=== PATIENT | male | born 1945 | race Caucasian/White ===

== ENCOUNTER 2017-03-26 10:14 | Emergency (ER) | payer MEDICARE ==
[2010-09-14 13:00] VITALS: BMI 33.4
== END 2017-03-26 11:40 | disposition home or self-care (01) ==
LOC: D.ER 10:14
DX: S39.012A Strain of muscle, fascia and tendon of lower back, initial encounter (principal); V43.32XA Unspecified car occupant injured in collision with other type car in nontraffic accident, initial encounter; Y93.89 Activity, other specified; Y92.410 Unspecified street and highway as the place of occurrence of the external cause; S01.01XA Laceration without foreign body of scalp, initial encounter

== ENCOUNTER → 2019-12-15 10:17 | Outpatient (CLI) | payer MEDICARE ==
[2010-09-14 13:00] VITALS: BMI 33.4
== END | disposition home or self-care (01) ==
LOC: D.HCCECHO 10:17
PROVIDERS: ATTEND Internal Medicine Cardiovascular Disease
DX: I25.10 Atherosclerotic heart disease of native coronary artery without angina pectoris (principal)

== ENCOUNTER 2020-01-03 07:51 | Inpatient (IN) | payer MEDICARE ==
[~2020-01-03] VITALS: Ht 188 cm; Wt 134.1 kg
--- NOTE | ~2020-01-03 | HEMODYNAMI ---
PATIENT:MARIO JUAN MEDICAL RECORD: [id number] : 49 LOCATION:D.CAT ADMISSION DATE: 01/03/20 Generatedon:01/03/202010:16 Patient name: MARIO JUAN Patient #: [id number] SSN: D OB: 1945 Date of study: 01/03/2020 Page: Of Hemodynamic Procedure Report Patient Data Patient Demographics Procedure consent was obtained First Name: MARIO Gender: Male Last Name: YESSICA : 1945 Middle Initial: D Age: 74 year(s) Patient #: [id number] Race: Unknown Additional ID: [id number] Contact details [address]: [address] [place] [address] State: [place] City: [place] Zip code: [address] Past Medical History History of disease Date Diagnosis Comments CAD Allergies: No known allergies Admission Admission Data Admission Date: 01/03/2020 Admission Time: 7:51 Height (in.): 74.02 BSA: 2.53 (m2) Height (cm.): 188 BMI: 36.78 (kg/m2) Weight (lbs.): 286.6 Weight (kg.): 130 Medications upon Admission Medications Dosage Times Administered Last Remarks per Delivery Day Date and Time ARMANDO Inhibitor (any) Beta Anne (any) Current Diagnosis Diagnosis Description Unstable angina Lab Results Lab Result Date: 01/03/2020 Lab Result Time: 0:00 Biochemistry Name Units Result Min Max Creatinine mg/dl 1.2 --(---*)-- 0.6 1.3 eGFR ml/min 63 *-(----)-- 90 120 NONAFRICAN CBC Name Units Result Min Max Hematocrit % 39.9 -*(----)-- 42 54 Hemoglobin g/dl 13 -*(----)-- 13.5 17.5 Procedure Procedure Types Cath Procedure Diagnostic Procedure LHC LHC w/Coronaries Procedure Description Procedure Date Procedure Date: 01/03/2020 Procedure Start Time: 9:45 Procedure End Time: 10:13 Procedure Staff Name Function Maxime Conley MD Performing Physician Vince Redd RT Monitor Mica Tanner RT Scrub Trace Iraheta RN Nurse Procedure Data Cath Procedure Fluoroscopy Diagnostic fluoroscopy Total fluoroscopy Time: 4.1 time: 4.1 min min Diagnostic fluoroscopy Total fluoroscopy dose: dose: 1258 mGy 1258 mGy Contrast Material Contrast Material Type Amount (ml) Isovue 300 85 Entry Location Entry Primary Successful Side Size Upsize Upsize Entry Closure Succes sful Closure Location (Fr) 1 (Fr) 2 (Fr) Remarks Device Remarks Femoral Right 5 Fr Exoseal artery Estimated blood loss: 10 ml Diagnostic catheters Device Type Used For End Catheter Placement MULTIPACK JL 4.0 5Fr Procedure catheter DIAGNOSTIC JL 5 5Fr Procedure catheter ([id number]) MULTIPACK 3DRC 5Fr Procedure catheter MULTIPACK Pigtail 5 Fr Procedure catheter Procedure Medications Medication Administration Route Dosage Oxygen etCO2 Nasal cannula 2 l/min Lidocaine 2% added to field 20 Heparin Flush Bag added to field 2 bags (1000units/500ml NS) 0.9% NaCl I.V. 100 ml/hr Versed I.V. 1 mg Fentanyl I.V. 50 mcg Versed I.V. 1 mg Fentanyl I.V. 50 mcg Versed I.V. 1 mg Hemodynamics Rest BSA: 2.53 (m2) HGB: 13 (g/dl) O2 Consumption: Estimated: 277.66 (ml/min) O2 Cons umption indexed: Estimated:109.75 (ml/min/m) Heart Rate: 55 (bpm) Pressure Samples Time Site Value (mmHg) Purpose Heart Use Rate(bpm) 10:00 LV 96/7,17 Snapshot 64 10:01 AO 103/57(76) Pullback 69 10:01 LV 104/1,13 Pullback 69 Gradients Valve Time Site 1 Site 2 Mean SEP/DFP Peak To Heart Use (mmHg) (sec/min) Peak Rate (mmHg) (bpm) Aortic 10:01 LV AO 9 14 1 69 104/1,13 103/57(76) Calculations Valve P-P Mean Valve Index Valve Source Name Gradient Area Flow (cm2) Aortic 1 9 1 9 Snapshots Pre Cath Intra NCS Post Cath Vital Signs Time Heart Resp SPO2 etCO2 NIBP Rhythm Pain Sedation Rate (ipm) (%) (mmHg) (mmHg) Status Level (bpm) 9:35:36 50 18 98 30 126/63(85) NSR 0 (11) 10(A) , No pain 9:39:56 53 21 99 1.5 119/67(83) NSR 0 (11) 10(A) , No pain 9:44:12 52 20 98 21.7 111/65(83) NSR 0 (11) 10(A) , No pain 9:48:28 52 16 98 27 102/58(65) NSR 0 (11) 9(A) , No pain 9:52:46 50 17 98 26.2 107/59(86) NSR 0 (11) 9(A) , No pain 9:57:02 67 17 98 24 108/63(78) NSR 0 (11) 9(A) , No pain 10:01:18 66 17 98 19.5 103/60(80) NSR 0 (11) 10(A) , No pain 10:05:34 65 27 98 30 110/67(84) NSR 0 (11) 10(A) , No pain 10:09:52 50 17 98 22.5 106/60(76) NSR 0 (11) 10(A) , No pain 10:14:13 47 14 98 13.5 110/58(79) NSR 0 (11) 10(A) , No pain Medications Time Medication Route Dose Verified Delivered Reason Notes Effe ctiveness by by 9:36:40 Oxygen etCO2 2 Maxime Buffie used for Nasal l/min Jarvis Iraheta RN procedure cannula 9:36:47 Lidocaine 2% added 20ml Maxime Buffie for local to vial Jarvsi Iraheta RN anesthetic field 9:36:53 Heparin Flush added 2 Maxime Buffie used for Bag to bags Jarvis Iraheta RN procedure (1000units/500ml field NS) 9:37:02 0.9% NaCl I.V. 100 Maxime Buffie Per ml/hr Jarvis Iraheta RN physician 9:44:00 Versed I.V. 1 mg Maxime Buffie for Jarvis Iraheta RN sedation 9:44:06 Fentanyl I.V. 50 Maxime Buffie for mcg Jarvis Iraheta RN sedation 9:49:20 Versed I.V. 1 mg Maxime Buffie for Jarvis Iraheta RN sedation 9:49:24 Fentanyl I.V. 50 Maxime Buffie for mcg Conley MD Iraheta RN sedation 9:54:02 Versed I.V. 1 mg Maxime Woodward for Jarvis Iraheta RN sedation Procedure Log Time Note 9:16:56 Informed consent obtained and on chart 9:19:14 ACC Patient presents with Unstable Angina CCS Anginal Class 2--Slight limitation of ordinary activity. 9:19:17 Procedure Status Elective Heart Cath (OP). 9:19:21 Vince Redd RT(R) (CV) sent for patient. Start room use. 9:19:23 Time tracking: Regular hours (M-F 7:00 - 5:00) 9:19:27 Plan of Care:Hemodynamics will remain stable., Cardiac rhythm will remain stable., Comfort level will be maintained., Respiratory function will remain adequate., Patient/ family verbilizes understanding of procedure., Procedure tolerated without complication., Recovers from procedure without complications.. 9:19:31 Full Disclosure recording started 9:19:35 H&P Date Dictated: 01/03/2020 Within 30 days and on chart.. 9:19:52 Patient allergic to No known allergies 9:19:58 Is the patient allergic to Iodine/contrast media? No. 9:20:00 Was the patient premedicated? N/A 9:20:21 ACCPatient has been prescribed/administered the following anti-anginal medication within the last 2 weeks: Beta Anne, Calcium Channel Blockers, ARMANDO-Inhibitor 9:20:26 Patient NPO since Midnight. 9:20:32 Is patient on blood thinner?No 9:20:34 ACC The patient was administered the following blood thiners within the last 24 hours: None 9:20:53 Patient diabetic? No. 9:20:55 If diabetic: On Metformin? N/A 9:21:50 Patient Height : 74.02 inches 9:21:53 Patient Weight : 286.6 lbs 9:21:57 Current Diagnosis : Unstable angina 9:22:30 Lab Result : Hemoglobin 13 g/dl 9:22:30 Lab Result : eGFR NONAFRICAN 63 ml/min 9:22:30 Lab Result : Creatinine 1.2 mg/dl 9:22:30 Lab Result : Hematocrit 39.9 % 9:22:35 Diagnostic Cath Status : Elective 9:25:02 Lab results completed and on chart. 9:25:24 Stress Test: yes; abnormal FIXED INFERIOR WALL 9:25:34 Risk of Mortality: 0.1 9:25:39 Risk of blood transfusion: 0.5 9:25:42 Risk of DRE: 1.8 9:25:59 Patient received from Pre/Post Procedure Room to CCL 1 Alert and oriented. Tansferred to table in Supine position. 9:26:04 Warm blankets applied, and henry hugger turned on for patient comfort. 9:26:05 Correct patient and procedure confirmed by team. 9:26:09 Pre-procedure instructions explained to patient. 9:26:10 Pre-op teaching completed and patient verbalized understanding. 9:27:39 Family in patients room. 9:27:42 ECG and BP/O2 sat monitors applied to patient. 9:28:11 Previous problem with sedation/anesthesia? No ? 9:28:14 Snore? Yes 9:28:16 Sleep apnea? No 9:28:17 Deviated septum? No 9:28:23 Opens mouth fully? Yes 9:28:24 Sticks out tongue? Yes 9:28:27 Airway obstruction? No ? 9:28:30 Dentures? No ? 9:28:53 IV patent on arrival in left hand with 0.9% NaCl at [facility]. 9:34:18 Baseline sample Acquired. 9:34:20 Vital chart was started 9:34:24 Rhythm: sinus bradycardia 9:34:57 Right groin area was prepped with chlora-prep and draped in sterile fashion 9:34:59 Alarms reviewed by R. N. 9:34:59 Sharps counted by scrub and verified by R.N. 9:36:05 Pre procedure: right dorsailis pedis pulse 1+ Palpable, but thready & weak; easily obliterated 9:36:40 Oxygen 2 l/min etCO2 Nasal cannula was administered by Trace Iraheta RN; used for procedure; Verbal order read back and verified. 9:36:47 Lidocaine 2% 20ml vial added to field was administered by Trace Iraheta RN; for local anesthetic; Verbal order read back and verified. 9:36:53 Heparin Flush Bag (1000units/500ml NS) 2 bags added to field was administered by Trace Iraheta RN; used for procedure; Verbal order read back and verified. 9:37:02 0.9% NaCl 100 ml/hr I.V. was administered by Trace Iraheta RN; Per physician; Verbal order read back and verified. 9:37:21 Use device set Femoral Dx 9:37:25 ACIST Syringe (80634) opened to sterile field. 9:37:26 Bag Decanter (2002S) opened to sterile field. 9:37:27 Medline Cath Pack ([id number]) opened to sterile field. 9:37:29 ACIST Hand Control (92370) opened to sterile field. 9:37:29 ACIST Manifold (41774) opened to sterile field. 9:37:30 DIAGNOSTIC Multipack 5Fr catheter set ([id number]) opened to sterile field. 9:37:32 EMERALD Guide Wire (755-587) opened to sterile field. 9:37:34 SHEATH 5FR [place] (XFX935) opened to sterile field. 9:41:17 Physician arrived 9:41:19 --------ALL STOP TIME OUT------ 9:41:19 Final Timeout: patient, procedure, and site verified with staff and physician. All members of the team are in agreement. 9:41:21 Right groin site verified by team. 9:41:27 Fire Safety Assessment: A--An alcohol-based skin anteseptic being used preoperatively., C--Open oxygen or nitrous oxide is being used., D--An ESU, laser, or fiber-optic light is being used. 9:41:32 Physical assessment completed. ASA score P 2 - A patient with mild systemic disease as per Maxime Conley MD. 9:41:56 2) 60-89 Mildly reduced kidney function, and other findings (as for stage 1) point to kidney disease. 9:42:37 Maximum allowable contrast dose (3.7 X eGFR X 0.75)230 ml. 9:42:44 Sedation plan: IV Moderate Sedation Medication:Versed, Fentanyl 9:44:00 Versed 1 mg I.V. was administered by Trace Iraheta RN; for sedation; Verbal order read back and verified. 9:44:06 Fentanyl 50 mcg I.V. was administered by Trace Iraheta RN; for sedation; Verbal order read back and verified. 9:44:43 Zero performed for pressure channel P1 9:45:37 Procedure started. 9:45:47 Local anesthetic to right femoral artery with Lidocaine 2% by Maxime Conley MD.INITIAL ACCESS ONLY 9:48:48 A 5 Fr sheath was inserted into the Right Femoral artery 9:49:20 Versed 1 mg I.V. was administered by Trace Iraheta RN; for sedation; Verbal order read back and verified. 9:49:24 Fentanyl 50 mcg I.V. was administered by Trace Iraheta RN; for sedation; Verbal order read back and verified. 9:49:29 A MULTIPACK JL 4.0 5Fr catheter was advanced over the wire and used for Procedure. 9:50:51 Catheter removed. unable to cannulate vessel. 9:51:32 A DIAGNOSTIC JL 5 5Fr catheter ([id number]) was advanced over the wire and used for Procedure. 9:52:27 LCA angiography performed. 9:54:02 Versed 1 mg I.V. was administered by Trace Iraheta RN; for sedation; Verbal order read back and verified. 9:54:16 Catheter removed. 9:56:02 A MULTIPACK 3DRC 5Fr catheter was advanced over the wire and used for Procedure. 9:56:29 RCA angiography performed. 9:57:50 SATHYA VISUALIZED 9:57:54 Catheter removed. 9:59:20 A MULTIPACK Pigtail 5 Fr catheter was advanced over the wire and used for Procedure. 10:01:03 LV gram done using URBINA 10:01:10 EF : 50 % 10:01:12 LV hemodynamics recorded. 10:01:41 Tegaderm 4 x 4 (1626W) opened to sterile field. 10:01:43 EXOSEAL 5Fr (EX500) opened to sterile field. 10:01:45 Catheter removed. 10:02:25 Sheath removed intact; hemostasis achieved with Exoseal to the Right Femoral artery. 10:02:28 Procedure ended.(Physican Out) 10:03:42 Fluoroscopy time 04.10 minutes. 10:04:21 Flurop Dose total: 1258 10:04:21 Fluoroscopy dose: 1258 mGy 10:05:54 Dose Area Product 49.5 mGy/cm. 10:06:03 Contrast amount:Isovue 300 85ml. 10:06:07 Maximum allowable dose exceeded? No. 10:06:13 Sharps counted by scrub and verified by R.N. 10:07:07 Insertion/operative site no bleeding no hematoma. 10:07:16 Post-op/insertion site Right Femoral artery dressed using a 4 x 4 and Tegaderm. 10:07:22 Post right femoral artery:stable 10:07:33 Post-procedure physical assessment completed. ASA score P 2 - A patient with mild systemic disease as per Maxime Conley MD. 10:07:39 Post procedure rhythm: sinus rhythm 10:07:43 Estimated blood loss: 10 ml 10:07:47 Patient needs reinforcement of post procedure teaching. 10:07:49 Procedure and supply charges have been captured, reviewed, submitted and are correct. 10:09:19 [facility] Findings: MVD- CABG consult 10:09:24 Operative report dictated upon procedure completion. 10:11:39 See physician's report for complete and final results. 10:13:04 Report given to Pre/Post Procedure Room. 10:13:16 Patient transfered to Pre/Post Procedure Room with Stretcher. 10:13:21 Procedure ended. 10:13:21 Full Disclosure recording stopped 10:13:53 End room use (Document Last) 10:16:26 Vital chart was stopped Device Usage Item Name Manufacture Quantity Catalog Hospital Part Current Minimal L ot# / Number Charge Number Stock Stock Serial# Code ACIST Acist 1 11280 446717 126798 [id number] 20 Syringe Medical (76332) Systems Inc Bag Microtek 1 901999 58068 501051 5 Decanter Medical Inc. () Medline Medline 1 [id number] 326112 69542 312905 5 Cath Pack ([id number]) ACIST Hand Acist 1 25490 610040 113996 896007 5 Control Medical (93961) Systems Inc ACIST Acist 1 65618 991978 082619 974069 5 Manifold Medical (45095) Systems Inc DIAGNOSTIC Cardinal 1 TV6509 776978 43750 175165 30 Multipack Health 5Fr catheter set (LC5409) EMERALD Cardinal 1 502-455 545912 730543 791751 5 Guide Wire Health (502-455) SHEATH 5FR Terumo 1 PUD433 476170 708111 635495 5 [place] (EIY555) MULTIPACK Cardinal 1 861556 5 JL 4.0 5Fr Health catheter DIAGNOSTIC Cardinal 1 [id number] 374943 688903 794771 5 JL 5 5Fr Health catheter (977764B) MULTIPACK Cardinal 1 227935 5 3DRC 5Fr Health catheter MULTIPACK Cardinal 1 991264 5 Pigtail 5 Health Fr catheter Tegaderm 4 3M 1 1626W 454377 785077 809188 5 x 4 (1626W) EXOSEAL 5Fr Cardinal 1 EX500 075467 518385 879204 10 (EX500) Health Signature Audit [place]aux Stage Time Signature Unsigned Intra-Procedure 01/03/2020 Vince Redd 10:14:55 AM RT(R) (CV) Intra-Procedure 01/03/2020 Trace Iraheta RN 10:16:25 AM [facility] [address] [place] [id number]
[2020-01-03] MEDS ORDERED: NORVASC10 MG PO (08:35)
[2020-01-03] MEDS ORDERED: LIPITOR80 MG PO (08:35)
[2020-01-03] MEDS ORDERED: HCTZ25 MG PO (08:36)
[2020-01-03] MEDS ORDERED: COREG CR10 MG PO (08:36)
[2020-01-03] MEDS ORDERED: COZAAR100 MG PO (08:36)
[2020-01-03] MEDS ORDERED: CARDURA2 MG PO (08:37)
[2020-01-03] MEDS ORDERED: BAYER CHEWABLE81 MG PO (08:37)
[2020-01-03 08:46] VITALS: BP 141/72; BMI 36.6
[2020-01-03 08:55] LABS: BASOPHILS 0.3 % (0-2); EOSINOPHILS 2.2 % (0-7); HEMATOCRIT 39.9 % (42.0-54.0); IMMATURE GRANULOCYTES 0.3 % (0-5); LYMPHOCYTES 21.9 % (15-50); MCH 30.6 pg (26.0-34.0); MCHC 32.6 g/dL (31.0-37.0); MCV 93.9 fL (80.0-100.0); MEAN PLATELET VOLUME 9.6 fL (7.4-10.4); MONOCYTES 8.6 % (2-11); NEUTROPHILS 66.7 % (40-80); PLATELET COUNT 163 10x3/uL (130-400); RBC 4.25 10x6/uL (4.20-6.10); RDW 13.9 % (11.5-14.5); WBC 7.3 10x3/uL (4.8-10.8)
[2020-01-03 09:11] LABS: ANION GAP 10.3 mmol/L (8-16); CALCIUM 9.1 mg/dL (8.5-10.1); CARBON DIOXIDE 26.6 mmol/L (21.0-32.0); CHOL - HDL RATIO 3.9 ratio (2.3-4.9); CREATININE - SERUM 1.2 mg/dL (0.6-1.3); LDL-HDL RATIO 2.1 ratio (1.5-3.5); POTASSIUM - SERUM 3.9 mmol/L (3.5-5.1)
--- NOTE | 2020-01-03 10:17 | NUR ---
DR. ALFREDO IN TO UPDATE STEP-DAUGHTER AT BS, PLAN FOR PT TO BE ADMITTED TO [facility] 2 AND SURGERY CONSULT.
--- NOTE | 2020-01-03 10:20 | NUR ---
PT REC'D TO ROOM 3 POST BRICK BAKER VIA STRETCHER. MONITORS ESTAB, FAMILY AT BS. SEE WATCHMAKING TEACHER. ALARMS ON AND C/L IN REACH.
--- NOTE | 2020-01-03 10:35 | NUR ---
PULSES PALP. R GROIN SITE SOFT, NO S/S BLEEDING OR SWELLING. R LEG/FOOT WARM, BRISK CAP REFILL. VSS. FAMILY AT .
--- NOTE | 2020-01-03 11:00 | NUR ---
REPORT CALLED TO SHARON ON MED 2. BED 2109 NOT READY AT THIS TIME. PT RESTING QUIETLY, VSS. C/L IN REACH.
--- NOTE | 2020-01-03 11:10 | NUR ---
PULSES PALP,, R GROIN SITE C/D/I, NO S/S BLEEDING OR HEMATOMA. VSS, POX 98% ON RA.
--- NOTE | 2020-01-03 11:15 | NUR ---
PT TRANSFERRED TO 2110 VIA FAMILY LINA AT .
[2020-01-03 11:46] VITALS: BP 119/61; BMI 36.6
--- NOTE | 2020-01-03 14:50 | NUR ---
NO CHANGES FROM PREVIOUS ASSESSMENT TO RT GROIN. PT RESTING COMFORTABLY IN BED, TV NOT WANTING TO TURN ON, PUT IN A WORK ORDER AND CALL MAINTANCE TO COME FIX THE TV.
[2020-01-03 16:54] LABS: HEMATOCRIT 39.5 % (42.0-54.0); MCH 31.2 pg (26.0-34.0); MCHC 32.9 g/dL (31.0-37.0); MCV 94.7 fL (80.0-100.0); MEAN PLATELET VOLUME 9.8 fL (7.4-10.4); RBC 4.17 10x6/uL (4.20-6.10); RDW 13.8 % (11.5-14.5); WBC 6.7 10x3/uL (4.8-10.8)
[2020-01-03 16:59] LABS: APTT 26.3 SECONDS (22.8-39.4); INR 0.98 (0.85-1.17)
--- NOTE | 2020-01-03 17:31 | NUR ---
3000UNITS OF HEPARIN GIVEN AT THIS TIME. ALSO STARTED HEPARIN DRIP AT 1000UNITS PER HR [place] PROTOCOL. RECHECKED PTT IN 6HRS.
[2020-01-03 18:40] LABS: BASOPHILS 0.3 % (0-2); EOSINOPHILS 2.8 % (0-7); HEMATOCRIT 40.5 % (42.0-54.0); HEMOGLOBIN 13.1 g/dL (13.5-17.5); IMMATURE GRANULOCYTES 0.3 % (0-5); LYMPHOCYTES 20.2 % (15-50); MCH 30.9 pg (26.0-34.0); MCHC 32.3 g/dL (31.0-37.0); MCV 95.5 fL (80.0-100.0); MEAN PLATELET VOLUME 9.5 fL (7.4-10.4); MONOCYTES 9.1 % (2-11); NEUTROPHILS 67.3 % (40-80); PLATELET COUNT 159 10x3/uL (130-400); RBC 4.24 10x6/uL (4.20-6.10); RDW 13.8 % (11.5-14.5); WBC 7.9 10x3/uL (4.8-10.8)
[2020-01-03 18:45] LABS: ALBUMIN 3.7 g/dL (3.4-5.0); ANION GAP 12.3 mmol/L (8-16); BILIRUBIN - TOTAL 0.53 mg/dL (0.2-1.3); CALCIUM 8.5 mg/dL (8.5-10.1); CARBON DIOXIDE 26.4 mmol/L (21.0-32.0); CREATININE - SERUM 1.3 mg/dL (0.6-1.3); PHOSPHOROUS 3.5 mg/dL (2.5-4.9); POTASSIUM - SERUM 3.7 mmol/L (3.5-5.1); PROTEIN - SERUM 7.2 g/dL (6.4-8.2); T4 THYROXIN - FREE 0.87 ng/dL (0.76-1.46); THYROID STIMULATING HORMONE 2.55 uIU/mL (0.36-3.74); URIC ACID 6.9 mg/dL (2.6-7.2)
--- NOTE | 2020-01-03 19:00 | NUR ---
EVENING ROUNDS COMPLETE. PT SITTING UP IN BED. NO SIGNS OF DISTRESS. AAOX4. PT DENIES ANY PAIN OR NEEDS AT THIS TIME. CL IN REACH, BED IN LOWEST POSITION.
[2020-01-03 20:00] VITALS: BP 138/71
--- NOTE | 2020-01-03 22:35 | NUR ---
PT REQUEST FOR SOMETHING TO HELP HIM SLEEP. NO MEDICATIONS ON EMAR FOR QHS. DR. GRIFFITHS WITH CARDIOLOGY PAGED AT THIS TIME.
--- NOTE | 2020-01-03 22:44 | NUR ---
NEW ORDER FOR 10 MG OF AMBIEN PO X1 GIVEN TO THIS NURSE FROM DR. GRIFFITHS WITH CARDIOLOGY.
[2020-01-04] VITALS: BP 139/73
[2020-01-04 04:00] VITALS: BP 120/74
[2020-01-04 06:38] LABS: HEMATOCRIT 38.5 % (42.0-54.0); HEMOGLOBIN 12.6 g/dL (13.5-17.5); MCH 30.7 pg (26.0-34.0); MCHC 32.7 g/dL (31.0-37.0); MCV 93.9 fL (80.0-100.0); MEAN PLATELET VOLUME 10.1 fL (7.4-10.4); RBC 4.1 10x6/uL (4.20-6.10); RDW 13.8 % (11.5-14.5); WBC 7.2 10x3/uL (4.8-10.8)
[2020-01-04 07:58] VITALS: BP 139/64
[2020-01-04 10:55] LABS: BILIRUBIN NEGATIVE (NEGATIVE); GLUCOSE NEGATIVE (NEGATIVE); KETONE NEGATIVE (NEGATIVE); NITRITE NEGATIVE (NEGATIVE); UROBILINOGEN NORMAL (NORMAL)
[2020-01-04 11:40] VITALS: BP 145/80
[2020-01-04 15:21] VITALS: BP 144/83
--- NOTE | 2020-01-04 21:10 | NUR ---
PAGED CARDIOLOGY, PT REQUESTING TO HAVE THE AMBIEN AGAIN ONE TIME FOR SLEEP DUE TO ANXIETY ABOUT UPCOMMING PROCEDURE.
--- NOTE | 2020-01-04 21:19 | NUR ---
RENÉ MARQUIS APN WITH CARDIOLOGY RETURNED PAGE. NEW ORDERS FOR ONE TIME DOSE OF 10 MG AMBIEN GIVEN.
[2020-01-04 21:41] VITALS: BP 165/92
[2020-01-05] VITALS (33 sets, daily range): BP systolic 101–137; BP diastolic 51–64; Ht 188 cm; Wt 134.1 kg
--- NOTE | 2020-01-05 04:30 | NUR ---
PT PIV TO LEFT HAND INFILTRATED. HEPARIN DTT STOPPED AT THIS TIME. WILL RESTART PIV AFTER PT SHOWER.
[2020-01-05 05:02] LABS: HEMATOCRIT 41.6 % (42.0-54.0); HEMOGLOBIN 13.8 g/dL (13.5-17.5); MCH 30.9 pg (26.0-34.0); MCHC 33.2 g/dL (31.0-37.0); MCV 93.1 fL (80.0-100.0); MEAN PLATELET VOLUME 9.5 fL (7.4-10.4); RBC 4.47 10x6/uL (4.20-6.10); RDW 13.7 % (11.5-14.5); WBC 7.6 10x3/uL (4.8-10.8)
--- NOTE | 2020-01-05 05:20 | NUR ---
PT PREPED AND CLIPPED, SHOWER GIVEN. NEW PIV STARTED IN LEFT UPPER ARM. NO SIGNS OF DISTRESS. PT DENIES ANY PAIN OR NEEDS AT THIS TIME. CL IN REACH, BED IN LOWEST POSITION.
[2020-01-05 05:43] LABS: ANION GAP 13.4 mmol/L (8-16); CALCIUM 8.8 mg/dL (8.5-10.1); CARBON DIOXIDE 26.6 mmol/L (21.0-32.0); CREATININE - SERUM 1.3 mg/dL (0.6-1.3)
--- NOTE | 2020-01-05 14:00 | NUR ---
RECIEVED PT FROM THE OR VIA BED AND HEART TEAM. SEE FLOW SHEET.
[2020-01-06] VITALS (25 sets, daily range): BP systolic 99–131; BP diastolic 43–68
--- NOTE | 2020-01-06 02:25 | NUR ---
PT SAT UP ON SIDE OF BED AND DANGLED FEET. TOLERATED WELL. VITAL SIGNS STABLE. CHEST TUBE DRAINAGE WNL. WILL CONTINUE TO OBSERVE.
[2020-01-06 05:37] LABS: HEMATOCRIT 34.6 % (42.0-54.0); HEMOGLOBIN 11.4 g/dL (13.5-17.5); MCH 31.1 pg (26.0-34.0); MCHC 32.9 g/dL (31.0-37.0); MCV 94.3 fL (80.0-100.0); MEAN PLATELET VOLUME 9.5 fL (7.4-10.4); RBC 3.67 10x6/uL (4.20-6.10); RDW 14.1 % (11.5-14.5)
[2020-01-06 05:39] LABS: WBC 12.7 10x3/uL (4.8-10.8)
[2020-01-06 06:30] LABS: ALBUMIN 3.4 g/dL (3.4-5.0); BILIRUBIN - TOTAL 0.52 mg/dL (0.2-1.3); CALCIUM 8.2 mg/dL (8.5-10.1); CARBON DIOXIDE 26.7 mmol/L (21.0-32.0); CREATININE - SERUM 1.2 mg/dL (0.6-1.3); POTASSIUM - SERUM 3.7 mmol/L (3.5-5.1); PROTEIN - SERUM 6.6 g/dL (6.4-8.2)
--- NOTE | 2020-01-06 06:55 | NUR ---
CHG BATH GIVEN WITH SHELTON CARE. PT UP IN BEDSIDE CHAIR. TOLERATED WELL. CALL LIGHT IN REACH.
--- NOTE | 2020-01-06 07:00 | NUR ---
RECIEVED BEDSIDE REPORT AND ASSUMED CARE OF PATIENT. PATIENT SITTING UP IN BEDSIDE CHAIR, VSS. ON O2 VIA NC AT 4 LPM WITH SPO2 94%, BBS - CLEAR, DIMINISHED IN THE BASES. CHEST TUBE X 2 TO 20 CM SUCTION AND KRISTINA DRAIN NOTED. DRESSINGS C/D/I. SHELTON CATH IN PLACE WIT CLEAR SOFIA UOP NOTED. RIGHT IJ CVL WITH PLASMOLYTE INFUSING AT 100 ML/RH, ZINACEF AT 12.8 ML/HR, AMIODARONE AT 0.5 MG/HR (16.7 ML/HR) AND DOPAMINE AT 3 MCG/KG/MIN (14.5 ML/HR). HEAD TO TOE ASSESSMENT COMPLETED.
--- NOTE | 2020-01-06 07:43 | OP ---
PATIENT NAME: MARIO JUAN MEDICAL RECORD: [id number] :49 LOCATION:[facility] D.CV02 ADMISSION DATE:01/03/20 SURGEON: ASAF WOOTEN MD DATE OF OPERATION: 01/05/2020 SURGEON: Asaf Wooten MD PROCEDURE PERFORMED: 1. Coronary artery bypass graft times 3 (left internal mammary to LAD, reverse saphenous vein graft from aorta to obtuse marginal, aorta to posterior descending artery). 2. Endoscopic saphenous vein harvest. PREOPERATIVE DIAGNOSES: Coronary artery disease, carotid stenosis. ANESTHESIA: General endotracheal anesthesia. ESTIMATED BLOOD LOSS: Total cardiopulmonary bypass with Cell Saver retransfusion. COMPLICATIONS: None. SPECIMENS: Mediastinal, SATHYA lymph nodes. CONDITION: Stable. DISPOSITION: CVICU. OPERATIVE FINDINGS: 1. Large fatty heart, moderate mitral regurgitation, EF 45%. 2. Good quality greater saphenous vein endoscopically from the right lower extremity. 3. LAD 2.5 mm, large left internal mammary artery, very thick sternum. 4. Obtuse marginal 1.5 mm. 5. Posterior descending artery 1.75 mm. 5. The diagonal had severe disease past the bifurcation. It was small after that point, so was not grafted. The patient cardiopulmonary bypass on dopamine due to bradycardia and was AV paced. INDICATION: Unstable angina and severe LAD stenosis with RCA occlusion. PROCEDURE IN DETAIL: The patient was brought to the operative suite. General anesthesia was obtained. The patient was prepped and draped. Greater saphenous vein was harvested from the right lower extremity utilizing endoscopic technique. Side branches were divided with electrocautery. Vessels ligated proximally and distally and removed. Side branches were tied. Leg was irrigated and closed in 2 layers. Median sternotomy incision was made. Subcutaneous tissue was divided with electrocautery. Sternum was divided with a saw. Left hemisternum was elevated. Left pleural cavity was entered. Left internal mammary artery and vein were taken down as a pedicle graft. Sternal retractor was placed. Pericardium was opened. Heparin was given. Aorta was cannulated. Dual-stage venous cannula was inserted. Activated clotting time was appropriately elevated. Internal mammary was clipped distally and made ready for anastomosis. The patient was OPERATIVE REPORT [id number] MARIO JUAN placed in cardiopulmonary bypass. Sites for distal anastomoses were selected. Antegrade cardioplegia cannula was inserted. The patient was cooled. Cross-clamp was placed. Cardioplegia was given antegrade and this was repeated at 15- to 20-minute intervals during the cross-clamp time. Distal anastomosis was performed in standard technique, proximal anastomosis with single cross-clamp technique. The aortic root was de-aired, removing the cross-clamp, de-airing the root, tying the proximal anastomosis, de-airing the graft, and restoring the flow. The proximal and distal anastomotic sites were inspected for bleeding. A single 6-0 in the proximals. The patient resumed a spontaneous rhythm. Atrial and ventricular pacing wires were placed. The patient was paced due to sinus bradycardia. Dopamine was started. The patient was fully rewarmed, weaned from cardiopulmonary bypass, and was stable. The patient was decannulated. Cannula sites were oversewn. Protamine was given. Thorough irrigation was undertaken. Hemostasis was ensured. Left chest was evacuated and irrigated. Internal mammary harvest site was inspected. A drain was placed in the mediastinum and left pleural cavity. Pericardial fat was loosely reapproximated over the heart and the sternum was closed with wires. Fascia was closed. Subcutaneous tissue was closed. Skin was closed. Dermabond was placed. Needle and sponge counts were reported as correct. The patient was taken to ICU in stable condition. NTS:[id number] Voice Confirmation ID: [id number] DOCUMENT ID: [id number] ASAF WOOTEN MD at 0743 CC: KAYLI ALFREDO M.D. and ZE BONILLA MD [id number] DICTATION DATE: 01/05/201808 SPORT PSYCHOLOGIST: 01/06/20 0153 ADM IN [facility] [address] [place] [address]
--- NOTE | 2020-01-06 08:00 | NUR ---
DR. WOOTEN AT ROOM UPDATED AND EXAMINES PATIENT. D/C PLASMOYTE, AMIODARONE GTTS, TURNS OFF PACEMAKER AND OK TO DISCONNECT. DOPAMINE GT DECREAED TO 2 MCG/KG/MIN.
--- NOTE | 2020-01-06 09:28 | NUR ---
PATIENTS GRANDDAUGHTER AT ROOM UPDATED AND QUESTIONS ANSWERED.
--- NOTE | 2020-01-06 10:54 | NUR ---
REASSESSMENT COMPLETED. PATIENT WATCHING TV, NO COMPLAINTS, VSS. SITTING UP IN BEDSIDE CHAIR. RATES PAIN 1/10.
--- NOTE | 2020-01-06 11:40 | NUR ---
PATIENT GIVEN LUNCH TRAY. NO NEEDS AT THIS TIME. VSS.
--- NOTE | 2020-01-06 12:10 | NUR ---
PATIENT ATE APPROXIMATELY 80% OF LUNCH TRAY, DIET ADVANCED TO AHA LOW FAT LOW CHOLESTEROL DIET FOR DINNER. VSS.
--- NOTE | 2020-01-06 12:15 | NUR ---
PATIENTS STEPDAUGHTER AT ROOM UPDATED AND QUESTIONS ANSWERED.
--- NOTE | 2020-01-06 14:30 | NUR ---
DR. WOOTEN AT ROOM, PATIENT GIVEN 2 MG MORPHINE IVP WITH NS FLUSH PER DR. WOOTEN TO PULL CHEST TUBES. CHEST TUBES REMOVED AND BETADINE OINTMENT APPLIED, DRESSED WITH 4X4S AND TEGADERM. ART LINE D/C'D PER ORDER, DIRECT PRESSURE HELD FOR APPROXIMATELY 5 MINUTES, NO S/S OF HEMATOMA OR BLEEDING, CLEANED IWTH IODINE AND DRESSED WITH 2X2 AND TEGADERM DRESSING. PATIENT PLACED BACK IN BED PRIOR TO FOR PROCEDURE.
--- NOTE | 2020-01-06 15:00 | NUR ---
REASSESSMENT COMPLETED. VSS. PATIENT RESTING QUIETLY IN BED. DENIES ANY PAIN.
--- NOTE | 2020-01-06 16:04 | NUR ---
PATIENTS STEPDAUGHTER AT ROOM UPDATED AND QUESTIONS ANSWERED. PATIENT REPOSITIONED IN BED. VSS.
--- NOTE | 2020-01-06 16:42 | NUR ---
PATIENT GIVEN DINNER TRAY, STATES NOT HUNGRY AT THIS TIME. TRAY LEFT ON BEDSIDE TABLE. VSS.
--- NOTE | 2020-01-06 17:30 | NUR ---
PATIENT ASSISTED UP TO BEDSIDE CHAIR. VSS.
--- NOTE | 2020-01-06 19:15 | NUR ---
REPORT RECEIVED. PT RECEIVED UP IN CHAIR. DENIES PAIN OR ANY NEEDS AT THIS TIME. VITAL SIGNS STABLE. KRISTINA DRAIN PATENT AND COMPRESSED, DRESSING C/D/I. DRESSING TO RIGHT RADIAL, OLD A-LINE SITE, C/D/I. N/C 4LPM. SHELTON PATENT WITH CLEAR SOFIA URINE NOTED. CALL LIGHT IN REACH. WILL CONTINUE TO OBSERVE.
[2020-01-07] VITALS (20 sets, daily range): BP systolic 96–146; BP diastolic 38–74
[2020-01-07 05:35] LABS: HEMATOCRIT 32.6 % (42.0-54.0); HEMOGLOBIN 10.5 g/dL (13.5-17.5); MCH 30.6 pg (26.0-34.0); MCHC 32.2 g/dL (31.0-37.0); MEAN PLATELET VOLUME 9.6 fL (7.4-10.4); RBC 3.43 10x6/uL (4.20-6.10); RDW 14.2 % (11.5-14.5); WBC 13.7 10x3/uL (4.8-10.8)
[2020-01-07 06:00] LABS: ANION GAP 11.9 mmol/L (8-16); BILIRUBIN - TOTAL 0.73 mg/dL (0.2-1.3); CALCIUM 8.1 mg/dL (8.5-10.1); CARBON DIOXIDE 25.9 mmol/L (21.0-32.0); CREATININE - SERUM 1.2 mg/dL (0.6-1.3); POTASSIUM - SERUM 3.8 mmol/L (3.5-5.1); PROTEIN - SERUM 6.5 g/dL (6.4-8.2)
--- NOTE | 2020-01-07 07:17 | NUR ---
SUBSTERNAL DRESSING CHANGED, KRISTINA AND TPM WIRES NOTED. WIRES COILED AND COVERED. PT TOLERATED WELL. PT UP IN CHAIR. WILL CONTINUE TO OBSERVEL
--- NOTE | 2020-01-07 07:38 | NUR ---
DR WOOTEN CALLED AND MADE AWARE OF PT HAVING PACS 20-40/MIN, WITH HR 80-100BPM. RECEIVED ORDERS TO STOP DOPAMINE AND GIVE 20MEQ OF KCL ONE TIME IV. KCL STARTED.
--- NOTE | 2020-01-07 11:56 | NUR ---
Nutrition Follow-up: POD 2 CABG. Tolerating solids. Reports feeling very full after breakfast. Denies N/V. -BM; + flatus. Reports having some difficulty swallowing even prior to surgery and has to eat very slowly. Expressed interest in receiving diet information. Diet: Cardiac, Mech Soft PO intake: 50% avg yesterday Wt: 284# (01/06) Labs noted: Glu 134, Glu 125, Ca 8.1, Alb 3.0 -Encourage PO intake and honor food preferences within diet restrictions. -Pt may benefit from CMA OR LPN eval. -Will provide diet education prior to d/c per pt request. -Monitor wt. -RD following.
[2020-01-08] VITALS (30 sets, daily range): BP systolic 87–154; BP diastolic 33–85
--- NOTE | 2020-01-08 05:52 | NUR ---
SUBSTERNAL DRESSING CHANGED. CHG BATH GIVEN WITH LINEN CHANGE.
[2020-01-08 05:55] LABS: HEMATOCRIT 31.9 % (42.0-54.0); HEMOGLOBIN 10.1 g/dL (13.5-17.5); MCH 30.3 pg (26.0-34.0); MCHC 31.7 g/dL (31.0-37.0); MCV 95.8 fL (80.0-100.0); MEAN PLATELET VOLUME 9.6 fL (7.4-10.4); RBC 3.33 10x6/uL (4.20-6.10); RDW 14.3 % (11.5-14.5); WBC 10.4 10x3/uL (4.8-10.8)
[2020-01-08 06:36] LABS: ALBUMIN 2.9 g/dL (3.4-5.0); ANION GAP 11.7 mmol/L (8-16); BILIRUBIN - TOTAL 0.63 mg/dL (0.2-1.3); CALCIUM 8.3 mg/dL (8.5-10.1); CARBON DIOXIDE 24.2 mmol/L (21.0-32.0); CREATININE - SERUM 1.2 mg/dL (0.6-1.3); POTASSIUM - SERUM 3.9 mmol/L (3.5-5.1); PROTEIN - SERUM 6.6 g/dL (6.4-8.2)
--- NOTE | 2020-01-08 19:57 | NUR ---
REC'D REPORT FROM OFF-GOING NURSE AND ASSUMED CARE. INITIAL ASSESSMENT COMPLETED PER FLOW SHEET. DENIES NEEDS. DISCUSSED PLACING SCDs BACK ON WHEN RECEIVED 9PM MEDS SO THAT THEY WOULD KEEP CIRCULATION GOING. VERBALIZED UNDERSTANDING.
--- NOTE | 2020-01-08 23:59 | NUR ---
LYING QUIETLY SINCE 9PM MEDS. PUT SCDs ON ABOUT 2029. DENIED NEEDS THEN OR SINCE THEN. WILL CONT TO MONITOR.
[2020-01-09] VITALS (22 sets, daily range): BP systolic 113–155; BP diastolic 39–84
[2020-01-09 07:27] LABS: ALBUMIN 2.8 g/dL (3.4-5.0); ANION GAP 10.5 mmol/L (8-16); BILIRUBIN - TOTAL 0.62 mg/dL (0.2-1.3); CALCIUM 8.1 mg/dL (8.5-10.1); CREATININE - SERUM 1.1 mg/dL (0.6-1.3); POTASSIUM - SERUM 4.5 mmol/L (3.5-5.1); PROTEIN - SERUM 6.5 g/dL (6.4-8.2)
[2020-01-09 09:14] LABS: HEMOGLOBIN 10.3 g/dL (13.5-17.5); MCH 30.9 pg (26.0-34.0); MCHC 32.2 g/dL (31.0-37.0); MCV 96.1 fL (80.0-100.0); MEAN PLATELET VOLUME 9.8 fL (7.4-10.4); RBC 3.33 10x6/uL (4.20-6.10); RDW 14.3 % (11.5-14.5); WBC 8.9 10x3/uL (4.8-10.8)
--- NOTE | 2020-01-09 16:17 | NUR ---
1450: R IJ DC'D. MANUAL PRESSURE HELD X 2 MIN. SITE DRESSED WITH 2X2 AND TEGADERM.
[2020-01-10] VITALS (23 sets, daily range): BP systolic 107–156; BP diastolic 42–85
[2020-01-10 04:49] LABS: HEMATOCRIT 30.1 % (42.0-54.0); HEMOGLOBIN 9.6 g/dL (13.5-17.5); MCH 30.5 pg (26.0-34.0); MCHC 31.9 g/dL (31.0-37.0); MCV 95.6 fL (80.0-100.0); MEAN PLATELET VOLUME 9.5 fL (7.4-10.4); RBC 3.15 10x6/uL (4.20-6.10); RDW 14.1 % (11.5-14.5); WBC 7.8 10x3/uL (4.8-10.8)
[2020-01-10 05:23] LABS: ALBUMIN 2.7 g/dL (3.4-5.0); ALKALINE PHOSPHATASE 49 U/L (30-120); ALT (SGPT) 49 U/L (10-68); BILIRUBIN - TOTAL 0.58 mg/dL (0.2-1.3); CALC OSMOLALITY 278 mosm/kg (275-300); CALCIUM 8.1 mg/dL (8.5-10.1); CARBON DIOXIDE 28.1 mmol/L (21.0-32.0); CHLORIDE - SERUM 103 mmol/L (98-107); GLUCOSE 107 mg/dL (74-106); POTASSIUM - SERUM 4.2 mmol/L (3.5-5.1); PROTEIN - SERUM 6.3 g/dL (6.4-8.2); SODIUM 138 mmol/L (136-145); UREA NITROGEN 21 mg/dL (7-18); eGFR NON AFRICAN AMERICAN 78 mL/min (90-120)
--- NOTE | 2020-01-10 09:17 | NUR ---
0700 PT RECIEVED UP INCHAIR ALERT AND ORIENTED O2 2L NC WEANED OFF, TPM WIRES COILED TO CHEST WITH DRESSING CDI, SEE SHIFT ASSESSMENT FOR DETAILS 0900 ATE 100% BREAKFAST, TOOK AM MEDS WITHOUT DIFFICULTY, O2 REAPPLIED FOR SPO2 88%
--- NOTE | 2020-01-10 11:21 | NUR ---
Nutrition Follow-up: POD 5 CABG. Eating well overall; ate 100% of breakfast this AM. Discussed heart healthy diet; questions answered. Diet: Cardiac, Mech Soft Wt: 287.7# (01/09) +BM Labs noted: Glu 107, Ca 8.1, Alb 2.7 Meds noted: Protonix, KDur, Senokot, Colace -Provided education/written information on heart healthy diet. -Monitor wt. -RD following.
--- NOTE | 2020-01-10 11:44 | TEE ---
PATIENT:MARIO JUAN MEDICAL RECORD: [id number] LOCATION:[place] [address] AGE OF PATIENT: 74 ADMISSION DATE: 01/03/20 SEX: M REFERRING PHYSICIAN: INTERPRETING PHYSICIAN: TRISHA GRIFFITHS MD TRANSESOPHAGEAL ECHOCARDIOGRAM Date: 01/05/20 ZAIDA CHARGE Y INDICATIONS: CABG PREMEDICATIONS: PATIENT'S RESPONSE PROCEDURE DOPPLER MEASUREMENTS: LVIT LA PA RA LVOT RVOT Asc. Ao AV Gradient Peak AV Mean AV Area MV Gradient Peak MV Mean MV Area INTERPRETATION: Doppler: 2-D: COLOR FLOW DOPPLER NORMAL SALINE STUDY: MISCELLANOUS: DIAGNOSIS: PLAN: Junior Accountant:3 Dr. Coyle Entry Level Truck Driver: Florence ROSS COMMENTS: DATE OF SERVICE: PROCEDURE: Intraoperative ZAIDA. FINDINGS: Preoperatively shows mild global hypokinesis with EF mildly reduced at lower limits of normal at 45% to 50%. Aortic valve is tricuspid with good valve excursion. Left atrium is normal with mild plus MR. Postop shows good wall thickening, EF appears to be lower limits of normal at TRANSESOPHAGEAL ECHOCARDIOGRAM REPORT [id number] RAFAEL JUAN 50% to 55%. Aortic valve with good valve excursion. Mitral valve with mild plus MR. TRANSINT:[id number] Voice Confirmation ID: [id number] DOCUMENT ID: [id number] at [id number] CC: [id number] DICTATION DATE: 01/06/20 1444 FLOOR SANDER: 01/06/20 1626 ADM IN [place] [id number] [place] [address]
--- NOTE | 2020-01-10 18:10 | NUR ---
PT HAD TWO LOOSE BMS THIS SHIFT, AMBULATED 500FT, DENIES ALL NEEDS
--- NOTE | 2020-01-10 19:20 | NUR ---
PT RECEIVED IN BED WITH EYES OPEN. NO NEEDS MADE KNOWN. N/C 2LPM. CALL LIGHT IN REACH. WILL CONTINUE TO OBSERVE.
--- NOTE | 2020-01-10 22:30 | NUR ---
PT RESTING WITH EYES CLOSED AND CHEST RISING. SPO2 98%. O2 DECREASED TO 1 LPM. WILL CONTINUE TO OBSERVE.
[2020-01-11] VITALS (18 sets, daily range): BP systolic 123–158; BP diastolic 53–87
--- NOTE | 2020-01-11 01:00 | NUR ---
SPO2 97% WITH SUPPLEMENTAL O2 TURNED OFF. WILL CONTINUE TO OBSERVE
[2020-01-11 04:20] LABS: HEMATOCRIT 30.1 % (42.0-54.0); HEMOGLOBIN 9.6 g/dL (13.5-17.5); MCH 30.5 pg (26.0-34.0); MCHC 31.9 g/dL (31.0-37.0); MCV 95.6 fL (80.0-100.0); MEAN PLATELET VOLUME 9.4 fL (7.4-10.4); RBC 3.15 10x6/uL (4.20-6.10); RDW 14.2 % (11.5-14.5); WBC 7.9 10x3/uL (4.8-10.8)
--- NOTE | 2020-01-11 11:05 | NUR ---
REASSESSMENT COMPLETED. VSS WILL CONTINUE TO MONITOR.
--- NOTE | 2020-01-11 13:00 | NUR ---
PATIENT SITTING UP IN CHAIR. VSS NO SIGNS OF ACUTE DISTRESS NOTED.
--- NOTE | 2020-01-11 15:00 | NUR ---
REASSESSMENT COMPLETE. VSS. DR MCNEAL AT BEDSIDE. PACE MAKER WIRES REMOVED. NO SIGNS OF ACUTE DISTRESS NOTED. WILL CONTINUE TO MONITOR.
[2020-01-11] MEDS ORDERED: LIPITOR20 MG PO (15:17)
[2020-01-11] MEDS ORDERED: PLAVIX75 MG PO (15:17)
[2020-01-11] MEDS ORDERED: COREG6.25 MG PO (15:19)
[2020-01-11] MEDS ORDERED: PERCOCET 5-3251 TAB PO (15:35)
--- NOTE | 2020-01-11 17:34 | NUR ---
PATIENT TRANSPORTED VIA WHEEL CHAIR TO V. NO SIGNS OF ACUTE DISTRESS.
--- NOTE | 2020-01-11 20:07 | MORECARE ---
CASE MANAGEMENT DISCHARGE SUMMARY PATIENT: JETHRO VILLANUEVA UNIT: [id number] ADM DATE: 01/03/20 AGE: 74 : [birth year] SEX: M ROOM/BED: [facility] AUTHOR: TINA ROBERTSON PHYSICIAN: REFERRING PHYSICIAN: KAYLI ALFREDO M.D. DATE OF SERVICE: 01/11/20 Discharge Plan Patient Name: JETHRO VILLANUEVA Facility: [facility]:[place] : 1945 Planned Disposition: Home Anticipated Discharge Date: Discharge Date: 01/11/2020 Expected LOS: Initial Reviewer: [email or web address] Initial Review Date: 01/03/2020 Generated: 01/11/20 9:07 pm Comments DCP- Discharge Planning Updated by [email or web address]: Constanza Wells on 01/10/20 7:[address] Late entry: The patient has been seen by [facility] and qualifies for a Medicaid spend down, per Jose David. Coverage Notice Reviewer: [email or web address] Nitin Wells Notice Issued Date-Time: 01/03/2020 9:09 Notice Type: Medicare Outpatient Observation Notice Notice Delivered To: Patient Relationship to Patient: Self Outplacement Consultant Name: Jethro Villanueva Delivery Method: HAND - Hand Delivered Moon Days: Prior Verbal Notification: Recipient Understood Notice: Yes Recipient Signature: Yes Med Rec Note Co-signed by Attending: Coverage Notice Comment: HANSON delivered/signed by patient. Reviewer: [email or web address] Nitin Barajas Notice Issued Date-Time: 01/11/2020 11:30 Notice Type: IM Discharge Notice Notice Delivered To: Patient Relationship to Patient: Outplacement Consultant Name: Delivery Method: HAND - Hand Delivered Moon Days: Prior Verbal Notification: Recipient Understood Notice: Yes Recipient Signature: Yes Med Rec Note Co-signed by Attending: Coverage Notice Comment: Patient Name: JETHRO VILLANUEVA Page [phone] at 2006 All edits/amendments must be made on the electronic document DICTATION DATE: 01/11/202006 BERRY GROWER: FAVIAN 01/11/202006 RPT#: [id number] DC DATE:01/11/20 STATUS: DIS IN [address], [facility] END OF REPORT
--- NOTE | 2020-01-11 20:14 | MORECARE ---
CASE MANAGEMENT DISCHARGE SUMMARY PATIENT: JETHRO VILLANUEVA UNIT: [id number] ADM DATE: 01/03/20 AGE: 74 : 47 SEX: M ROOM/BED: [facility] AUTHOR: MARCELO,DOC PHYSICIAN: REFERRING PHYSICIAN: KAYLI ALFREDO M.D. DATE OF SERVICE: 01/11/20 Discharge Plan Patient Name: JETHRO VILLANUEVA Facility: [facility]:[place] : 1945 Planned Disposition: Home Anticipated Discharge Date: Discharge Date: 01/11/2020 Expected LOS: Initial Reviewer: [email or web address] Initial Review Date: 01/03/2020 Generated: 01/11/20 9:13 pm Comments DCP- Discharge Planning Updated by [email or web address]: Sobia Barajas on 01/11/20 7:[address] Patient Name: JETHRO VILLANUEVA Admission Status: Elective Accout number: [id number] Admission Date: 01-03-2020 : 1945 Admission Diagnosis:ANGINA PECTORIS, UNSPECIFIED Attending: KAYLI ALFREDO Current LOS: 8 Anticipated DC Date: Planned Disposition: Home Primary Insurance: MEDICARE A & B Discharge Planning Comments: CM met with patient to complete initial dc planning assessment. CM educated patient on the CM role and verbal consent given by patient to complete assessment. Patient lives at home with family. Patient is independent. At discharge patient plans to return home and feels this is a safe discharge. CM discussed availability of home health, rehab services, and medical equipment. Patient will have family to transport home. Patient denied known discharge needs at this time. D/C IMM SIGNED 01/11/20 @ 1130 CM will continue t follow and will assist as needed with dc plans/needs. Computational Theory Scientist: Sobia Barajas DCP- Discharge Planning Updated by [email or web address]: Constanza Wells on 01/10/20 7:[address] Late entry: The patient has been seen by [facility] and qualifies for a Medicaid spend down, per Jose David. DCPIA - Discharge Planning Initial Assessment Updated by [email or web address]: Sobia Barajas on 01/11/20 8:08 pm * Is the patient Alert and Oriented? Yes * How many steps to enter\exit or inside your home? * PCP [facility] * Pharmacy [facility] * Preadmission Environment Home with Family * ADLs Independent * Equipment None * List name and contact numbers for known caregivers / representatives who currently or will assist patient after discharge: MILDRED MCADAMS - DAUGHTER - [phone] * Verbal permission to speak to the caregivers and representatives has been obtained from the patient. Yes * Community resources currently utilized None * Additional services required to return to the preadmission environment? No * Can the patient safely return to the preadmission environment? Yes * Has this patient been hospitalized within the prior 30 days at any hospital? No Coverage Notice Reviewer: [id number] Nitin Wells Notice Issued Date-Time: 01/03/2020 9:09 Notice Type: Medicare Outpatient Observation Notice Notice Delivered To: Patient Relationship to Patient: Self Engine Repairer Production Name: Jethro Villanueva Delivery Method: HAND - Hand Delivered Moon Days: Prior Verbal Notification: Recipient Understood Notice: Yes Recipient Signature: Yes Med Rec Note Co-signed by Attending: Coverage Notice Comment: VALENTIN delivered/signed by patient. Reviewer: [email or web address] Nitin Barajas Notice Issued Date-Time: 01/11/2020 11:30 Notice Type: IM Discharge Notice Notice Delivered To: Patient Relationship to Patient: Engine Repairer Production Name: Delivery Method: HAND - Hand Delivered Moon Days: Prior Verbal Notification: Recipient Understood Notice: Yes Recipient Signature: Yes Med Rec Note Co-signed by Attending: Coverage Notice Comment: Last DP export: 01/11/20 7:07 p Patient Name: JETHRO VILLANUEVA Page [phone] at 2013 All edits/amendments must be made on the electronic document DICTATION DATE: 01/11/202013 MARBLE COPER: FAVIAN 01/11/202013 RPT#: [id number] DC DATE:01/11/20 STATUS: DIS IN [facility] [address] [place] [address] END OF REPORT
== END 2020-01-11 17:35 | disposition home or self-care (01) | DRG 234 ==
LOC: D.CATH 07:51 → D.M2 07:51 → D.CVICU 11:16 → D.M2 11:16 → D.CATH 11:16 → D.CVICU 01-05 14:09
PROVIDERS: Thoracic Surgery (Cardiothoracic Vascular Surgery); ADMIT Internal Medicine Cardiovascular Disease; ATTEND Internal Medicine Cardiovascular Disease
PROC: B2151ZZ Fluoroscopy of Left Heart using Low Osmolar Contrast (ICD-10-PCS; 2020-01-03)
PROC: 4A023N7 Measurement of Cardiac Sampling and Pressure, Left Heart, Percutaneous Approach (ICD-10-PCS; 2020-01-03)
PROC: B2111ZZ Fluoroscopy of Multiple Coronary Arteries using Low Osmolar Contrast (ICD-10-PCS; principal; 2020-01-03 13:30)
PROC: 021109W Bypass Coronary Artery, Two Arteries from Aorta with Autologous Venous Tissue, Open Approach (ICD-10-PCS; 2020-01-05)
PROC: 02100Z9 Bypass Coronary Artery, One Artery from Left Internal Mammary, Open Approach (ICD-10-PCS; 2020-01-05)
PROC: 06BP4ZZ Excision of Right Saphenous Vein, Percutaneous Endoscopic Approach (ICD-10-PCS; 2020-01-05)
PROC: 5A1221Z Performance of Cardiac Output, Continuous (ICD-10-PCS; 2020-01-05)
PROC: B245ZZ4 Ultrasonography of Left Heart, Transesophageal (ICD-10-PCS; 2020-01-05)
DX: I25.110 Atherosclerotic heart disease of native coronary artery with unstable angina pectoris (principal); I65.23 Occlusion and stenosis of bilateral carotid arteries; R00.1 Bradycardia, unspecified; I48.0 Paroxysmal atrial fibrillation

== ENCOUNTER → 2020-02-02 09:55 | Outpatient (CLI) | payer MEDICARE ==
[2020-01-05 13:44] VITALS: BMI 36.6
[~2020-02-02 09:55] MED LIST: BAYER CHEWABLE81 MG PO; CARDURA2 MG PO; COREG CR10 MG PO; COREG6.25 MG PO; COZAAR100 MG PO; HCTZ25 MG PO; LIPITOR20 MG PO; LIPITOR80 MG PO; NORVASC10 MG PO; PERCOCET 5-3251 TAB PO; PLAVIX75 MG PO
[2020-02-02 10:53] LABS: BASOPHILS 0.4 % (0-2); HEMATOCRIT 39.1 % (42.0-54.0); HEMOGLOBIN 12.4 g/dL (13.5-17.5); IMMATURE GRANULOCYTES 0.1 % (0-5); LYMPHOCYTES 25.1 % (15-50); MCHC 31.7 g/dL (31.0-37.0); MCV 94.7 fL (80.0-100.0); MEAN PLATELET VOLUME 9.3 fL (7.4-10.4); MONOCYTES 11.6 % (2-11); NEUTROPHILS 58.8 % (40-80); PLATELET COUNT 230 10x3/uL (130-400); RBC 4.13 10x6/uL (4.20-6.10); RDW 14.2 % (11.5-14.5); WBC 6.8 10x3/uL (4.8-10.8)
[2020-02-02 11:04] LABS: ANION GAP 12.5 mmol/L (8-16); CALCIUM 9.4 mg/dL (8.5-10.1); CARBON DIOXIDE 25.8 mmol/L (21.0-32.0); CREATININE - SERUM 1.3 mg/dL (0.6-1.3); POTASSIUM - SERUM 4.3 mmol/L (3.5-5.1)
== END | disposition home or self-care (01) ==
LOC: D.RAD 09:55
PROVIDERS: ATTEND Thoracic Surgery (Cardiothoracic Vascular Surgery)
DX: Z98.890 Other specified postprocedural states (principal)

== ENCOUNTER → 2020-10-18 10:44 | Outpatient (CLI) | payer OTHER ==
[2020-01-05 13:44] VITALS: BMI 36.6
== END | disposition home or self-care (01) ==
LOC: D.HCCECHO 10:44
PROVIDERS: ATTEND Internal Medicine Cardiovascular Disease
DX: I34.0 Nonrheumatic mitral (valve) insufficiency (principal)